=== PATIENT | male | born 1950 | race Hispanic/Latino ===

== ENCOUNTER 2019-02-24 03:16 | Emergency (ER) | payer MEDICARE ==
[~2019-02-24 03:16] MED LIST: AEC81 PO; HYDR-4068 PO; HYDR25TA PO; LISI-613 PO
[2019-02-24] MEDS ORDERED: ACETAMINOPHEN 325 MG TAB ONE (03:38)
[2019-02-24] MEDS ORDERED: THIAMINE HCL 100 MG/ML 2ML VIAL ONE (03:38)
[2019-02-24] MEDS ORDERED: KETAMINE 50MG/ML SYRINGE 50 MG/ML DISP.SYRIN IV ONE (04:58)
== END 2019-02-24 07:02 | disposition home or self-care (01) ==
LOC: EDH 03:16
DX: S43.084A Other dislocation of right shoulder joint, initial encounter (principal); F10.20 Alcohol dependence, uncomplicated; Z72.0 Tobacco use; W07.XXXA Fall from chair, initial encounter; Y93.89 Activity, other specified; Y92.89 Other specified places as the place of occurrence of the external cause; Y99.8 Other external cause status; Y90.9 Presence of alcohol in blood, level not specified
CPT/HCPCS: 23650; 70450; 71045; 73020 ×2; 73060; 73110; 96372; 99285; J3411; J3490

== ENCOUNTER 2021-05-17 18:00 | Emergency (ER) | payer MEDICARE ==
[~2021-05-17] VITALS: Ht 175.3 cm; Wt 79.4 kg
[~2021-05-17 18:00] MED LIST changes: -LISI-613 PO; +LISI20TA24 PO
[2021-05-17] MEDS ORDERED: CYCLOBENZAPRINE HCL 10 MG TABLET ONE (18:41)
[2021-05-17] MEDS ORDERED: HYDROCODONE/ACETAMINOPHEN 10/325 MG TAB ONE (18:42)
[2021-05-17 19:00] LABS: BASOPHILS % (AUTO) 0.3 % (0.0-5.0); HEMATOCRIT 49.8 % (42-54); LYMPHOCYTES % (AUTO) 31.9 % (21.0-51.0); MEAN CORPUSCULAR HEMOGLOBIN 33.5 pg (27.0-33.0); MEAN CORPUSCULAR HGB CONC 34.5 g/dL (32.0-36.0); MEAN CORPUSCULAR VOLUME 97.1 fL (79-99); NEUTROPHILS % (AUTO) 55.2 % (40.0-77.0); PLATELET COUNT (AUTO) 167 K/uL (130-400); RED BLOOD CELL COUNT(AUTO) 5.13 MIL/uL (4.50-6.20); RED CELL DISTRIBUTION WIDTH 12.8 % (11.0-15.5); WHITE BLOOD COUNT (AUTO) 6.2 K/uL (4.8-10.8)
[2021-05-17] MEDS ORDERED: CYCLOBENZAPRINE HCL 10 MG TABLET PO ONE (19:00)
[2021-05-17] MEDS ORDERED: HYDROCODONE/ACETAMINOPHEN 10/325 MG TAB PO ONE (19:00)
[2021-05-17 19:08] LABS: CREATININE 0.9 mg/dL (0.5-1.5); POTASSIUM 3.8 mmol/L (3.5-5.1)
[2021-05-17 19:18] LABS: ALBUMIN 3.4 g/dL (3.5-5.0); BILIRUBIN,TOTAL 1.5 mg/dL (0.2-1.0); CRP QUANTITATIVE 2.4 mg/L (0.00-9.0); TOTAL PROTEIN, SERUM 7.4 g/dL (6.0-8.3)
[2021-05-17 19:29] LABS: APPEARANCE,URINE Clear (CLEAR); BILIRUBIN,URINE Negative (NEGATIVE); COLOR,URINE Dark Yellow (YELLOW); GLUCOSE, URINE (UA) Negative (NEGATIVE); KETONES,URINE Negative (NEGATIVE); LEUKOCYTE ESTERASE ,URINE Negative (NEGATIVE); NITRATE,URINE Negative (NEGATIVE); OCCULT BLOOD,URINE Negative (NEGATIVE); PROTEIN,URINE Negative (NEGATIVE)
[2021-05-17] MEDS ORDERED: 0.9%NACL 1000ML 1,000 ML IV ONE (19:30)
[2021-05-17] MEDS ORDERED: CYCL10TA16 PO (19:48)
[2021-05-17] MEDS ORDERED: TRAM1TAB PO (19:48)
[2021-05-17 19:53] VITALS: BP 165/95
== END 2021-05-17 20:47 | disposition home or self-care (01) ==
LOC: EDH 18:00
DX: M43.8X6 Other specified deforming dorsopathies, lumbar region (principal); M43.8X4 Other specified deforming dorsopathies, thoracic region; E87.1 Hypo-osmolality and hyponatremia; Z90.49 Acquired absence of other specified parts of digestive tract; Z96.642 Presence of left artificial hip joint; Z96.669 Presence of unspecified artificial ankle joint; Z79.82 Long term (current) use of aspirin; Z79.899 Other long term (current) drug therapy
CPT/HCPCS: 36415; 74176; 80053; 81003; 84484; 85025; 86140; 96360; 99284; J7030

== ENCOUNTER → 2023-12-12 | Outpatient (CLI) | payer OTHER, MEDICARE ==
[~2023-12-12] MED LIST changes: -AEC81 PO; +BISA-151 PO; +FINA-37 PO; -HYDR-4068 PO; -HYDR25TA PO; +METO75TA PO; +RIVA20TA PO; +TAMS-1 PO
== END | disposition home or self-care (01) ==
LOC: RAH 13:06
PROVIDERS: ATTEND Internal Medicine
DX: I08.8 Other rheumatic multiple valve diseases (principal); R60.0 Localized edema
CPT/HCPCS: 93306

== ENCOUNTER → 2023-12-27 | Outpatient (CLI) | payer OTHER, MEDICARE | END | disposition home or self-care (01) | LOC: RAH 09:05 | PROVIDERS: ATTEND Internal Medicine | DX: R60.9 Edema, unspecified (principal) | CPT/HCPCS: 93979 ==

== ENCOUNTER 2024-07-15 08:35 | Day surgery (SDC) | payer OTHER, MEDICARE ==
[2024-07-11 14:00] LABS: BASOPHILS # (AUTO) 0.02 K/uL (0.00-0.20); BASOPHILS % (AUTO) 0.3 % (0.0-5.0); EOSINOPHILS # (AUTO) 0.01 K/uL (0.00-0.70); EOSINOPHILS % (AUTO) 0.1 % (0.0-8.0); HEMATOCRIT 44.2 % (42-54); IMMATURE GRANULOCYTE ABSOLUTE 0.08 K/uL (0-1); LYMPHOCYTES # (AUTO) 1.8 K/uL (1.0-4.8); LYMPHOCYTES % (AUTO) 22.9 % (21.0-51.0); MEAN CORPUSCULAR HEMOGLOBIN 31.1 pg (27.0-33.0); MEAN CORPUSCULAR HGB CONC 33.3 g/dL (32.0-36.0); MEAN CORPUSCULAR VOLUME 93.6 fL (79-99); MONOCYTES # (AUTO) 0.4 K/uL (0.1-1.0); MONOCYTES % (AUTO) 5.3 % (3.0-13.0); NEUTROPHILS # (AUTO) 5.4 K/uL (1.8-7.7); NEUTROPHILS % (AUTO) 70.4 % (40.0-77.0); PLATELET COUNT (AUTO) 220 K/uL (130-400); RED BLOOD CELL COUNT(AUTO) 4.72 MIL/uL (4.50-6.20); RED CELL DISTRIBUTION WIDTH 13.6 % (11.0-15.5); WHITE BLOOD COUNT (AUTO) 7.7 K/uL (4.8-10.8)
[2024-07-11 14:11] LABS: CREATININE 1.2 mg/dL (0.5-1.3); POTASSIUM 4.7 mmol/L (3.5-5.1)
[2024-07-11 14:12] LABS: INR 1.15 (0.85-1.15)
[2024-07-11 14:13] VITALS: BP 132/85; PULSE 63; RESP 18; TEMP 97.3
[2024-07-11 14:13] LABS: PARTIAL THROMBOPLASTIN TIME 31.3 SEC (26.3-35.5)
--- NOTE | 2024-07-11 17:34 | HMCIMG ---
CHEST 1VW HISTORY: Preop COMPARISON: 02/04/2024 FINDINGS: A frontal projection of the chest was obtained. Mild bilateral pulmonary infiltrates are seen may be related to mild pulmonary vascular congestion with possible superimposed pneumonitis. The heart is borderline enlarged. Degenerative changes are seen. Aortic calcifications are seen. IMPRESSION: 1. Mild bilateral pulmonary infiltrates are seen may be related to mild pulmonary vascular congestion with possible superimposed pneumonitis.
--- NOTE | 2024-07-12 11:23 | EKG ---
[facility] Test Date: 2024-07-11 Test Time: 13:53:52 Pat Name: LIZBETH VELASQUEZ Department: [facility] Room: Gender: Male Vp Customer Service: [id number] : 1950 Requested By: VALERIE ERVIN Order Number: [id number] Reading MD: Darius Oliveros Measurements Intervals [place] Rate: 62 P: 0 VA: 0 QRS: 28 QRSD: 135 T: -6 QT: 464 QTc: 471 Interpretive Statements Atrial fibrillation Right bundle branch block Compared to ECG 02/09/2024 05:02:02 Right bundle-branch block now present Myocardial infarct finding no longer present Electronically Signed On 07-13-2024 11:28:10 CDT by Darius Oliveros Please click the below link to view image of tracing.
--- NOTE | 2024-07-12 15:09 | NUR ---
REPORT REPORTED CXR TO DOMINGO REHMAN. OK TO PROCEED
[~2024-07-15] VITALS: Ht 175.3 cm; Wt 94.8 kg
[2024-07-15] VITALS (20 sets, daily range): BP systolic 128–191; BP diastolic 73–99; PULSE 50–73; RESP 14–16; TEMP 97.5
[~2024-07-15 08:35] MED LIST changes: +APIX5TAB PO; +ATOR40TA69 PO; -BISA-151 PO; +CLOP75TA32 PO; -FINA-37 PO; +METO25TA6 PO; -METO75TA PO; -RIVA20TA PO; -TAMS-1 PO
[2024-07-15] MEDS: 0.9%NACL 1000ML 1,000 ML IV SCH (10:11)
[2024-07-15] MEDS ORDERED: BIVALIRUDIN 250 MG/VIAL IV ONE ×2 (13:06→13:55)
[2024-07-15] MEDS ORDERED: HEParin 10,000 UNIT/10ML (1,000 UNIT/ML) VIAL ONE (13:06)
[2024-07-15] MEDS ORDERED: ATROPINE 1MG SYG IVP ONE (13:06)
[2024-07-15] MEDS ORDERED: LIDOCAINE HCL 400MG/20ML VIAL ONE (13:07)
[2024-07-15] MEDS ORDERED: NITROGLYCERIN 50MG VIAL ONE (13:07)
[2024-07-15] MEDS ORDERED: HEParin-NS 1,000 UNIT/500 ML 1,000 ML IV ONE (13:07)
[2024-07-15] MEDS ORDERED: IOHEXOL 350 MG/ML 100ML INFUS..BTL IV ONE (13:08)
[2024-07-15] MEDS ORDERED: FENTanyl CITRate PF 50 MCG/1 ML 2ML VIAL ONE (13:35)
[2024-07-15] MEDS ORDERED: MIDAZOLAM HCL 1 MG/ML 2ML VIAL ONE (13:36)
[2024-07-15] MEDS ORDERED: cloPIDOgrel 300MG TAB ONE (14:27)
[2024-07-15] MEDS ORDERED: ASPIRIN 81MG CHEW TAB ONE (14:34)
--- NOTE | 2024-07-15 14:54 | PRN ---
PROCEDURES: 1. Right common femoral arterial sheath placement. 2. Selective coronary angiogram. 3. Angioplasty and lithotripsy angioplasty to mid distal left circumflex and 3 mm x 26 mm medicated stent deployed to 3.05 mm 4. Direct stent placement to distal right coronary artery with the use of a 3 mm x 18 mm resolute francisca stent deployed to 3.30 mm INDICATION: Class 2 angina Known multivessel coronary artery disease Previous LAD stenting DESCRIPTION OF PROCEDURE: The patient was brought to the catheterization suite and prepped and draped in sterile fashion. IV was started, and not already in place and both groins were exposed for arterial access. 1% lidocaine was used for local anesthesia and then a micropuncture kit was used to gain access once free-flowing blood was seen, modified Seldinger technique was utilized to place a 6 [place] sheath into the right common femoral artery. Next a 6 [place]isian Q 4 guide catheter was then placed into the left coronary system and a Choice PT extra-support wire was placed in the distal ongoing left circumflex artery. Next attempts were made to pass a lithotripsy balloon to mid distal LCX but was unsuccessful therefore then used a GuideLiner as support and was able to then deliver 3 mm x 12 mm lithotripsy balloon to distal left circumflex and treatment was initiated at 4 atmospheres in sequential fashion to the mid and distal left circumflex for a total of 7 treatments. Next with support of the GuideLiner catheter a 3 mm x 26 mm resolute francisca stent was then placed into the mid distal LCX and deployed to 3.05 mm. Follow up contrast injection revealed no evidence of dissection or perforation. ELÍAS 3 flow was noted. Next a JR4 guide catheter was then placed into the RCA and a choice PT extra- support wire was then placed in the distal RPL under fluoroscopic guidance. Next GuideLiner was used as support and then a 3 mm x 18 mm resolute francisca stent was then placed into the distal RCA and deployed to 3.30 mm. Follow up contrast injection revealed no evidence of dissection or perforation. FINDINGS: Patent LAD stents 75-85% stenosis of mid distal left circumflex 75-80% stenosis of distal RCA INTERVENTIONAL REPORT: The patient was brought to the catheterization suite and prepped and draped in sterile fashion. IV was started, and not already in place and both groins were exposed for arterial access. 1% lidocaine was used for local anesthesia and then a micropuncture kit was used to gain access once free-flowing blood was seen, modified Seldinger technique was utilized to place a 6 Tunis[place] sheath into the right common femoral artery. Next a 6 [place] Q 4 guide catheter was then placed into the left coronary system and a Choice PT extra-support wire was placed in the distal ongoing left circumflex artery. Next attempts were made to pass a lithotripsy balloon to mid distal LCX but was unsuccessful therefore then used a GuideLiner as support and was able to then deliver 3 mm x 12 mm lithotripsy balloon to distal left circumflex and treatment was initiated at 4 atmospheres in sequential fashion to the mid and distal left circumflex for a total of 7 treatments. Next with support of the GuideLiner catheter a 3 mm x 26 mm resolute francisca stent was then placed into the mid distal LCX and deployed to 3.05 mm. Follow up contrast injection revealed no evidence of dissection or perforation. ELÍAS 3 flow was noted. Next a JR4 guide catheter was then placed into the RCA and a choice PT extra- support wire was then placed in the distal RPL under fluoroscopic guidance. Next GuideLiner was used as support and then a 3 mm x 18 mm resolute francisca stent was then placed into the distal RCA and deployed to 3.30 mm. Follow up contrast injection revealed no evidence of dissection or perforation. RECOMMENDATIONS: Continue aspirin clopidogrel and Eliquis concomitantly for 30 days and then proceed with clopidogrel and Eliquis only IV fluids in the patient Discharge patient home at 7:30 p.m. VALERIE ERVIN MD Jul 15, 2024 14:54
[2024-07-15] MEDS ORDERED: GLUCAGON 1MG KIT 1 MG ML IM PRN (15:00)
[2024-07-15] MEDS ORDERED: DEXTROSE 50%-WATER 50 ML DISP.SYRIN IV PRN (15:00)
[2024-07-15] MEDS ORDERED: 0.9%NACL 1000ML 1,000 ML IV SCH (15:00)
[2024-07-15] MEDS ORDERED: NITROGLYCERIN 0.4 MG SL TAB SL PRN (15:00)
[2024-07-15] MEDS ORDERED: hydrALAZine 20MG/ML VIAL IV PRN (15:00)
[2024-07-15] MEDS ORDERED: metoPROLOL tartRATE 1 MG/ML 5ML VIAL IV PRN (15:00)
--- NOTE | 2024-07-15 16:17 | NUR ---
SHEATH PULLED AT THIS TIME MANUAL PRESSURE HELD WITH A D-STAT X 20 MINUTES. PT TOLERATED WELL NAD VSS
== END 2024-07-15 19:35 | disposition home or self-care (01) ==
LOC: DAH 08:35
PROVIDERS: ATTEND Internal Medicine Cardiovascular Disease
DX: I25.118 Atherosclerotic heart disease of native coronary artery with other forms of angina pectoris (principal); I11.0 Hypertensive heart disease with heart failure; I50.32 Chronic diastolic (congestive) heart failure; I48.20 Chronic atrial fibrillation, unspecified; E78.5 Hyperlipidemia, unspecified; N40.0 Benign prostatic hyperplasia without lower urinary tract symptoms; F17.210 Nicotine dependence, cigarettes, uncomplicated; Z95.5 Presence of coronary angioplasty implant and graft; Z79.899 Other long term (current) drug therapy; Z79.82 Long term (current) use of aspirin; Z98.890 Other specified postprocedural states; Z82.49 Family history of ischemic heart disease and other diseases of the circulatory system
CPT/HCPCS: 80048; 85025; 85610; 85730; 36415; 71045; 93005; 93454; 92972; C9600 ×2; Q9965 ×2; C1769 ×2; C1887 ×3; C1894 ×2; C1874 ×2; C1761; J3010; J3490 ×2; J7030; J2250; J1644; J0583 ×2; Q9967; 99156; 99157; J0461